=== PATIENT | female | born 1935 | race Caucasian/White ===

== ENCOUNTER 2016-04-17 01:17 | Emergency (ER) | payer MEDICARE, BC ==
[2016-04-17] MEDS ORDERED: LIDOCAINE 2% URO-JET 5 ML KIT MM ONE (01:38)
--- NOTE | 2016-04-17 01:56 | ER Document Report ---
ED General - General TRAVEL OUTSIDE OF THE [place] IN LAST 30 DAYS: No - HPI Patient complains to provider of: abdominal pain constipation <JENAE TERAN - Last Filed: 04/17/16 07:42> <CONNOR HERNÁNDEZ - Last Filed: 04/17/16 09:24> - General Stated Complaint: ABDOMINAL PAIN - HPI Notes: Patient is approximately one week out from mastectomy surgery. States has not had a bowel movement in one week. Patient states she's not been taking her stool softeners. Patient upon arrival to the ER did become nauseous otherwise patient denies any nausea vomiting. Patient states still passing gas. Denies fevers chills. Patient states she did manually disimpact herself at home getting out a very minimal amount stool states that she is having significant pain trying to have a bowel movement. (JENAE TERAN) - Related Data Allergies/Adverse Reactions: acetaminophen [From Percocet] Allergy (Verified 04/17/16 04:00) oxycodone [From Percocet] Allergy (Verified 04/17/16 04:00) Past Medical History - Social History Smoking Status: Unknown if Ever Smoked Family History: None <JENAE TERAN - Last Filed: 04/17/16 07:42> Review of Systems - Review of Systems Constitutional: No symptoms reported EENT: No symptoms reported Cardiovascular: No symptoms reported Respiratory: No symptoms reported Gastrointestinal: Abdominal pain, Constipation Genitourinary: No symptoms reported Female Genitourinary: No symptoms reported Musculoskeletal: No symptoms reported Skin: No symptoms reported Hematologic/Lymphatic: No symptoms reported Neurological/Psychological: No symptoms reported -: Yes All other systems reviewed and negative <JENAE TERAN - Last Filed: 04/17/16 07:42> Physical Exam - Vital signs Interpretation: Normal - General General appearance: Appears well, Alert - HEENT Head: Normocephalic, Atraumatic Eyes: Normal Pupils: PERRL - Respiratory Respiratory status: No respiratory distress Chest status: Nontender Breath sounds: Normal Chest palpation: Normal - Cardiovascular Rhythm: Regular Heart sounds: Normal auscultation Murmur: No - Abdominal Inspection: Normal Distension: No distension Bowel sounds: Normal Tenderness: Tender - Diffuse. No: McBurney's point, Rutherford's sign, Guarding, Rebound, Other Organomegaly: No organomegaly - Back Back: Normal, Nontender - Extremities General upper extremity: Normal inspection, Nontender, Normal color, Normal ROM , Normal temperature General lower extremity: Normal inspection, Nontender, Normal color, Normal ROM , Normal temperature, Normal weight bearing. No: Neena's sign - Neurological Neuro grossly intact: Yes Cognition: Normal Orientation: AAOx4 Saeed Coma Scale Eye Opening: Spontaneous Saeed Coma Scale Verbal: Oriented Saeed Coma Scale Motor: Obeys Commands Saeed Coma Scale Total: 15 Speech: Normal Motor strength normal: LUE, RUE, LLE, RLE Sensory: Normal - Psychological Associated symptoms: Normal affect, Normal mood - Skin Skin Temperature: Warm Skin Moisture: Dry Skin Color: Normal <JENAE TERAN - Last Filed: 04/17/16 07:42> <CONNOR HERNÁNDEZ - Last Filed: 04/17/16 09:24> - Vital signs Vitals: Temp Pulse Resp BP Pulse Ox 97.8 F 99 16 158/81 H 92 04/17/16 01:40 04/17/16 01:40 04/17/16 01:40 04/17/16 01:40 04/17/16 01:40 (CONNOR HERNÁNDEZ) - Rectal Notes: Patient with external hemorrhoids no thrombosis Patient underwent disimpaction with a moderate amount of hard stool removed from the rectum. (JENAE TERAN) Course - Laboratory Result Diagrams: 04/17/16 06:39 04/17/16 06:39 <JENAE TERAN - Last Filed: 04/17/16 07:42> - Laboratory Result Diagrams: 04/17/16 06:39 04/17/16 06:39 - Diagnostic Test Radiology reviewed: Image reviewed, Reports reviewed <CONNOR HERNÁNDEZ - Last Filed: 04/17/16 09:24> - Re-evaluation Re-evalutation: 04/17/16 07:08 Disimpaction was performed patient underwent enema patient still had only minimal stool output. Patient is tolerating by mouth x-ray does show stool burden on the left hand side the sigmoid colon. There is some gaseous discomfort distention however patient does not have any nausea vomiting no signs of obstruction bowel sounds normal. 04/17/16 07:42 Patient continues to have stools will continue to monitor patient stools are still hard and painful for patient. (JENAE TERAN) 04/17/16 08:01 pt remains stable at this time, will continue to watch her 04/17/16 09:23 patient had 5 more bm in the ed, requests discharge home she feels much better and is very grateful After performing a Medical Screening Examination, I estimate there is LOW risk for ACUTE APPENDICITIS, BOWEL OBSTRUCTION, ACUTE CHOLECYSTITIS, PERFORATED DIVERTICULITIS, INCARCERATED HERNIA, PANCREATITIS, PELVIC INFLAMMATORY DISEASE, PERFORATED ULCER, ECTOPIC , or TUBO-OVARIAN ABSCESS, thus I consider the discharge disposition reasonable. Also, there is no evidence or peritonitis , sepsis, or toxicity. The patient and I have discussed the diagnosis and risks , and we agree with discharging home with close follow-up with the understanding that symptoms and presentations can change. We also discussed returning to the Emergency Department immediately if new or worsening symptoms occur. We have discussed the symptoms which are most concerning (e.g., bloody stool, fever, changing or worsening pain, vomiting) that necessitate immediate return. (CONNOR HERNÁNDEZ) - Vital Signs Vital signs: Temp Pulse Resp BP Pulse Ox 97.8 F 99 16 158/81 H 92 04/17/16 01:40 04/17/16 01:40 04/17/16 01:40 04/17/16 01:40 04/17/16 01:40 (CONNOR HERNÁNDEZ) - Laboratory Laboratory results interpreted by me: 04/17/16 04/17/16 06:39 06:39 RDW 15.9 H Seg Neutrophils % 84.1 H Lymphocytes % 5.9 L Absolute Neutrophils 8.6 H Glucose 148 H (CONNOR HERNÁNDEZ) Discharge <JENAE TERAN - Last Filed: 04/17/16 07:42> <CONNOR HERNÁNDEZ - Last Filed: 04/17/16 09:24> - Discharge Clinical Impression: Constipation Qualifiers: Constipation type: unspecified constipation type Qualified Code(s): K59.00 - Constipation, unspecified Condition: Good Disposition: HOME, SELF-CARE Instructions: Constipation ([facility]), Hemorrhoids ([facility]) Additional Instructions: Please take medications as prescribed. Please be aware that taking pain medication will cause constipation. Return to the ER symptoms worsen. You may also apply cream to your hemorrhoids. Prescriptions: Docusate Sodium [Colace 100 mg Capsule] 100 mg PO DAILY #30 capsule Hydrocortisone/Pramoxine [Analpram Hc 1% Cream] 30 gm RC TID #1 cream.appl Lidocaine [Recticare] 15 gm TP QID #1 cream..g. Referrals: DIRK TEMPLE, STEPHAN-C [Primary Care Provider] - Follow up as needed
[2016-04-17] MEDS ORDERED: PROCHLORPERAZINE EDISYLATE INJ 10 MG/2 ML VIAL IV ONE (02:22)
[2016-04-17] MEDS ORDERED: NORMAL SALINE 1000 ML 500 ML IV ONE (03:08)
[2016-04-17] MEDS ORDERED: NORMAL SALINE 1000 ML 1,000 ML IV ONE (03:08)
[2016-04-17] MEDS ORDERED: MINERAL OIL 30 ML UDCUP ONE (03:47)
[2016-04-17] MEDS ORDERED: MAGNESIUM CITRATE 296 ML BOTTLE PO ONE (06:24)
[2016-04-17 06:49] LABS: ABSOLUTE BASOPHILS # (AUTO) 0.1 10^3/uL (0.0-0.2); ABSOLUTE LYMPHOCYTES (AUTO) 0.6 10^3/uL (0.5-4.7); ABSOLUTE MONOCYTES (AUTO) 0.9 10^3/uL (0.1-1.4); ABSOLUTE NEUT (AUTO) 8.6 10^3/uL (1.7-8.2); BASOPHILS % (AUTO) 0.6 % (0-2); EOSINOPHILS % (AUTO) 0.5 % (0-6); HEMATOCRIT 39.1 % (36.0-47.0); HEMOGLOBIN 12.6 g/dL (12.0-15.5); HGB HCT DIFFERENCE -1.3; LYMPHOCYTES % (AUTO) 5.9 % (13-45); MEAN CORPUSCULAR HGB CONC 32.3 g/dL (32.0-36.0); MEAN CORPUSCULAR VOLUME 90 fl (80-97); MONOCYTES % (AUTO) 8.9 % (3-13); RED BLOOD COUNT 4.36 10^6/uL (3.72-5.28); RED CELL DISTRIBUTION WIDTH 15.9 % (11.5-14.0); SEGMENTED NEUTROPHILS % (AUTO) 84.1 % (42-78); WHITE BLOOD COUNT 10.2 10^3/uL (4.0-10.5)
[2016-04-17 07:23] LABS: ANION GAP 11 (5-19); BLOOD UREA NITROGEN 10 mg/dL (7-20); CALCIUM 8.8 mg/dL (8.4-10.2); CARBON DIOXIDE 24 mmol/L (22-30); CHLORIDE 105 mmol/L (98-107); CREATININE RESULT 0.57 mg/dL (0.52-1.25); GLUCOSE 148 mg/dL (75-110); POTASSIUM 4.6 mmol/L (3.6-5.0); SODIUM 139.7 mmol/L (137-145)
[2016-04-17 09:26] VITALS: BP 150/67
== END 2016-04-17 09:24 | disposition home or self-care (01) ==
LOC: ER 01:17
DX: K59.00 Constipation, unspecified (principal); K64.4 Residual hemorrhoidal skin tags; Z98.890 Other specified postprocedural states; Z90.10 Acquired absence of unspecified breast and nipple; Z88.6 Allergy status to analgesic agent; Z88.5 Allergy status to narcotic agent
CPT/HCPCS: 99284; 96360; 96361; 36415; 85025; 80048; 83605; 74022; J3490 ×2; J7030; A9270

== ENCOUNTER → 2016-12-20 | Outpatient (CLI) | payer MEDICARE, BC ==
--- NOTE | 2016-12-20 19:39 | XCELERA REPORT ---
[address] [address] Transthoracic Echocardiogram Report Name: RONALD WEST Age: 81 yrs Gender: Female : 1935 Patient Status: Outpatient Patient Location: Study Date: 12/20/2016 03:10 PM Height: 62 in Weight: 117 lb BSA: 1.5 m2 Reason For Study: CARDIAC ARRHYTHMIA Ordering Physician: LULÚ MOCK Performed By: Carline Ferguson Interpretation Summary Suboptimal images due to technical difficulty due to bilateral mastectomy and scar tissue. Limited info = No post peric effusion AV not calcified, no . No MS, no MR, no LA enlargement Mod conc. LVH with hyperdynamic LV contractility, no gross segmental regional wall motion abnormality, may be LV diastolic dysfunction, no LV enlagrement. R heart normal, RVSP upper normal 30 mm Hg. MMode/2D Measurements & Calculations RVDd: 1.9 cm LVIDd: 3.2 cm FS: 31.8 % Ao root diam: 2.7 cm IVSd: 1.0 cm LVIDs: 2.2 cm EDV(Teich): 40.4 ml LVPWd: 1.1 cm ESV(Teich): 15.7 ml Ao root area: 5.7 cm2 EF(Teich): 61.2 % LVOT diam: 1.8 cm LVOT area: 2.6 cm2 Doppler Measurements & Calculations MV E max sahra: MV dec slope: Ao V2 max: LV V1 max P.0 cm/sec 288.0 cm/sec2 118.4 cm/sec 3.3 mmHg MV A max sahra: MV dec time: Ao max PG: LV V1 max: 79.7 cm/sec 0.17 sec 5.6 mmHg 91.0 cm/sec MV E/A: 0.61 LAKESHIA(V,D): 2.0 cm2 PA V2 max: TR max sahra: 87.9 cm/sec 236.5 cm/sec PA max PG: TR max P.5 mmHg 3.1 mmHg Effusions There is no pericardial effusion. I WMSI = 1.00 % Normal = 100 Segments Size X - Cannot 2 - 4 - 1-2 small Interpret 1 - Normal Hypokinetic 3 - AkineticDyskinetic 3-5 moderate 5 - 6-14 large Aneurysmal 15-16 diffuse : LULÚ MOCK Andre
== END ==
LOC: SP 15:08
DX: I49.9 Cardiac arrhythmia, unspecified (principal)
CPT/HCPCS: 93306